=== PATIENT | female | born 1990 | race African-American/Black ===

== ENCOUNTER → 2017-05-16 | Outpatient (CLI) | payer SELFPAY ==
--- NOTE | 2017-05-16 14:43 | RADIOLOGY REPORT (SQ) ---
EXAM DESCRIPTION: U/S OB TRANSVAGINAL W/O DOP COMPLETED DATE/TIME: 05/16/2017 2:24 pm REASON FOR STUDY: ENCOUNTER FOR SUPERVISION OF OTHER NORMAL , FIRST TRIMESTER Z34.81 ENCOU NTER FOR SUPRVSN OF NORMAL , FIRST TRIM COMPARISON: No previous this TECHNIQUE: Endovaginal static and realtime grayscale images acquired of the pelvis. Additional selec ayala spectral and color Doppler images recorded. All images stored on PACs. bHCG: Not available LIMITATIONS: None. FINDINGS: An intrauterine gestational sac is present containing an embryo and yolk sac. [place]-rump length generates an estimated age of 7 weeks 3 days. No embryo cardiac activity is identified at delia l-time, with color flow, or with M-mode Doppler. This report was called to Danii Peña at the [facility] Department, 05/16/2017, 1400 hours SUBCHORIONIC BLEED: No SIZE OF BLEED: Not applicable. UTERUS: No masses. No anomalies. Uterus measures 13 x 9.5 x 7.8 cm in size CERVICAL LENGTH: 4.4 cm Closed. RIGHT ADNEXA: Normal ovary with normal vascular flow. Right ovary 2.7 x 2.7 x 1.6 cm in size. No adnexal free fluid. No adnexal masses. LEFT ADNEXA: Not well seen due to adnexal bowel gas FREE FLUID: None. OTHER: No other significant finding. IMPRESSION: 7 week 3 day intrauterine gestational sac and embryo. No embryo cardiac activity identi fied. Report called to the Health Department as above. Trimester of : First - 0 to 13 weeks. TECHNICAL DOCUMENTATION: JOB ID: [id number] [employer]- All Rights Reserved
== END ==
LOC: RAD 13:34
PROVIDERS: ATTEND Nurse Practitioner Women's Health
DX: Z34.81 Encounter for supervision of other normal pregnancy, first trimester (principal)
CPT/HCPCS: 76817

== ENCOUNTER → 2017-05-24 | Outpatient (CLI) | payer SELFPAY ==
--- NOTE | 2017-05-24 13:13 | RADIOLOGY REPORT (SQ) ---
EXAM DESCRIPTION: U/S OB TRANSVAGINAL W/O DOP COMPLETED DATE/TIME: 05/24/2017 12:46 pm REASON FOR STUDY: O02.1 MISSED O02.1 MISSED COMPARISON: 05/16/2017 TECHNIQUE: Transvaginal static and realtime grayscale images acquired of the pelvis. Additional isabella cted spectral and color Doppler images recorded. All images stored on PACs. bHCG: Not applicable. LIMITATIONS: None. FINDINGS: Sonographic imaging shows no identifiable gestational sac or pole. There is no yolk sac. There is no cardiac motion. There is a small amount of echogenic material in the endometrial canal. There is a 12 mm hypoechoic area in the vagina posteriorly. Uterus measures 10.9 x 7 x 5.3 c m. Right ovary measures 2.6 x 2.3 x 2.6 cm. The left ovary measures 1.9 x 2.3 x 1.8 cm. IMPRESSION: Cannot exclude a minimal amount of retained products of conception. There is what may b e some clot in the posterior vagina. TECHNICAL DOCUMENTATION: JOB ID: [id number]- All Rights Reserved
== END ==
LOC: RAD 12:11
PROVIDERS: ATTEND Nurse Practitioner Women's Health
DX: O02.1 Missed abortion (principal)
CPT/HCPCS: 76817

== ENCOUNTER → 2017-06-07 | Outpatient (CLI) | payer SELFPAY ==
--- NOTE | 2017-06-07 13:08 | RADIOLOGY REPORT (SQ) ---
EXAM DESCRIPTION: U/S [id number] TRNABD 1GES W/ODOP COMPLETED DATE/TIME: 06/07/2017 12:14 pm REASON FOR STUDY: ENCTR FOR SUPERVISIONS OF OTHER NORMAL , 1ST TRIMESTER (Z34.81) O03.9 CO MPLETE OR UNSP SPONTANEOUS WITHOUT COMPLICA COMPARISON: OB ultrasound 05/24/2017, 05/16/2017 TECHNIQUE: Transabdominal static and realtime grayscale images acquired of the pelvis. Additional se lected spectral and color Doppler images recorded. All images stored on PACs. BHCG: Not available LIMITATIONS: None. FINDINGS: UTERUS: No visualized intrauterine . Uterus is 10.7 x 6.3 x 4.8 cm. Endometrial stripe about 3 mm in thickness. No definite retained products of conception on this hansen sabdominal study. RIGHT ADNEXA: Normal ovary with normal vascular flow. Right ovary is 3.5 x 4.7 x 2.1 cm in size. No adnexal free fluid. No adnexal masses. LEFT ADNEXA: Not visualized due to adnexal bowel gas FREE FLUID: None. OTHER: No other significant finding. IMPRESSION: No visualized intrauterine . Endometrial stripe is about 3 mm in thickness. N o definite retained products of conception on this transabdominal study. Right ovary unremarkable. Left ovary not well seen due to pelvic bowel gas TECHNICAL DOCUMENTATION: JOB ID: [id number]- All Rights Reserved
== END ==
LOC: RAD 11:03
PROVIDERS: ATTEND Nurse Practitioner Women's Health
DX: Z34.81 Encounter for supervision of other normal pregnancy, first trimester (principal)
CPT/HCPCS: 76801

== ENCOUNTER 2017-08-19 19:26 | Emergency (ER) | payer MEDICAID ==
[2017-08-19] MEDS ORDERED: METOCLOPRAMIDE HCL INJ/PF 10 MG/2 ML SDV IV ONE (20:36)
[2017-08-19] MEDS ORDERED: NORMAL SALINE 1000 ML 1,000 ML IV ONE ×2 (20:36→23:26)
[2017-08-19] MEDS ORDERED: DIPHENHYDRAMINE HCL 50 MG/ML VIAL IV ONE (20:36)
--- NOTE | 2017-08-19 20:38 | ER Document Report ---
ED General - General Chief Complaint: Flu Symptoms Stated Complaint: VOMITIG Time Seen by Provider: 08/19/17 20:23 Mode of Arrival: Ambulatory Information source: Patient Notes: Patient presents complaining of left flank and lateral side pain for the past 2 weeks. Patient states that the pain worsened over the past few days. Patient reports nausea and vomiting 6 episodes today. Patient denies any fever or diarrhea. Patient denies any urinary symptoms. Patient is concerned that she may possibly be . Last bowel movement was today and was normal. TRAVEL OUTSIDE OF THE [place] IN LAST 30 DAYS: No - HPI Onset: Other - 2 weeks Onset/Duration: Worse Quality of pain: Sharp Pain Level: 4 Associated symptoms: Nausea, Vomiting. denies: Nonproductive cough, Productive cough, Diarrhea, Fever Exacerbated by: Movement Relieved by: Denies Similar symptoms previously: No Recently seen / treated by doctor: No - Related Data Allergies/Adverse Reactions: No Known Allergies Allergy (Verified 12/08/14 00:37) Past Medical History - General Information source: Patient Last Menstrual Period: Possibly - Social History Smoking Status: Never Smoker Frequency of alcohol use: None Drug Abuse: None Occupation: [employer] Family History: Reviewed & Not Pertinent Neurological Medical History: Reports: Hx Migraine. Denies: Hx Seizures GI Medical History: Reports: Hx Gastroesophageal Reflux Disease. Denies: Hx Hiatal Hernia, Hx Ulcer Musculoskeltal Medical History: Denies Hx Fibromyalgia Traumatic Medical History: Denies: Hx Fractures Past Surgical History: Reports: Hx Section. Denies: Hx Pacemaker - Immunizations Hx Diphtheria, Pertussis, Tetanus Vaccination: Yes Review of Systems - Review of Systems Constitutional: No symptoms reported. denies: Fever EENT: No symptoms reported Cardiovascular: No symptoms reported. denies: Chest pain Respiratory: No symptoms reported. denies: Cough, Short of breath Gastrointestinal: Nausea, Vomiting. denies: Abdominal pain, Diarrhea Genitourinary: Flank pain. denies: Dysuria Female Genitourinary: Irregular period. denies: Vaginal discharge, Vaginal bleeding Musculoskeletal: Back pain Skin: No symptoms reported Hematologic/Lymphatic: No symptoms reported Neurological/Psychological: No symptoms reported Physical Exam - Vital signs Vitals: Temp Pulse Resp BP Pulse Ox 98.9 F 92 20 132/75 H 98 08/19/17 19:33 08/19/17 19:33 08/19/17 19:33 08/19/17 19:33 08/19/17 19:33 - General General appearance: Appears well, Alert In distress: None - HEENT Head: Normocephalic Eyes: Normal Pupils: PERRL Ears: Normal External canal: Normal Tympanic membrane: Normal Mouth/Lips: Normal Mucous membranes: Dry Pharynx: Erythema. No: Peritonsillar abscess, Tonsillar hypertrophy, Potential airway comprom. Neck: Normal, Supple. No: Lymphadenopathy, Meningismus - Respiratory Respiratory status: No respiratory distress Chest status: Nontender Breath sounds: Normal. No: Rales, Rhonchi, Stridor, Wheezing Chest palpation: Normal - Cardiovascular Rhythm: Regular Heart sounds: S1 appreciated, S2 appreciated Murmur: No - Abdominal Inspection: Obese Distension: No distension Bowel sounds: Normal Tenderness: Tender - LUQ, left lateral side Organomegaly: No organomegaly - Back Back: CVA tenderness - left - Extremities General upper extremity: Normal inspection, Nontender, Normal strength General lower extremity: Normal inspection, Nontender, Normal strength - Neurological Neuro grossly intact: Yes Cognition: Normal Ray Coma Scale Eye Opening: Spontaneous Braden Coma Scale Verbal: Oriented Braden Coma Scale Motor: Obeys Commands Ray Coma Scale Total: 15 - Psychological Associated symptoms: Normal affect, Normal mood - Skin Skin Temperature: Warm Skin Moisture: Dry Skin Color: Normal Course - Re-evaluation Re-evalutation: 08/20/17 01:21 Patient returned to room from ultrasound with vomiting, additional medications ordered. 08/20/17 02:[address] Macario regarding patient presentation, recommends transferring patient to facility with urology services on given concern about possible UTI in the setting of likely renal stone in . Call placed to [facility] transfer center. Patient complains of continued left flank pain. Patient denies any vomiting at this time. RN advised of additional medication orders. 08/20/17 02:[address] Salguero, urology on-call for [facility]. States that typically LOAN COUNSELOR services will admit patients and that they are consulted as needed in cases such as this. States that patients typically get admitted for hydration, antibiotic therapy and that they try to avoid any procedures in the first trimester. 08/20/17 02:[address] Mccann who is on-call for CATH LABORATORY TECHNICIAN services at [facility] who does agree to accept patient for transfer. Discussed antibiotic treatment thus far, no additional recommendations made. 08/20/17 04:57 pt stable for transfer - Vital Signs Vital signs: Temp Pulse Resp BP Pulse Ox 99.1 F 81 20 107/62 98 08/20/17 04:50 08/20/17 04:50 08/20/17 04:50 08/20/17 04:50 08/20/17 04:50 - Laboratory Result Diagrams: 08/19/17 20:59 08/19/17 20:59 Laboratory results interpreted by me: 08/19/17 08/19/17 08/19/17 20:59 20:59 20:59 WBC 13.8 H Hgb 10.8 L Hct 32.4 L RDW 15.3 H Seg Neuts % (Manual) 92 H Lymphocytes % (Manual) 4 L Abs Neuts (Manual) 12.7 H Serum HCG, Qual POSITIVE H Beta HCG, Quant 872339.00 H Urine Protein Urine Ketones Urine Blood Ur Leukocyte Esterase 08/19/17 22:34 WBC Hgb Hct RDW Seg Neuts % (Manual) Lymphocytes % (Manual) Abs Neuts (Manual) Serum HCG, Qual Beta HCG, Quant Urine Protein 30 H Urine Ketones 80 H Urine Blood MODERATE H Ur Leukocyte Esterase LARGE H Labs- Entire Visit 08/19/17 08/19/17 08/19/17 20:59 20:59 20:59 WBC 13.8 H RBC 3.94 Hgb 10.8 L Hct 32.4 L MCV 82 MCH 27.4 MCHC 33.3 RDW 15.3 H Plt Count 305 Total Counted 100 Seg Neutrophils % Not Reportable Seg Neuts % (Manual) 92 H Lymphocytes % Not Reportable Lymphocytes % (Manual) 4 L Monocytes % Not Reportable Monocytes % (Manual) 4 Eosinophils % Not Reportable Eosinophils % (Manual) 0 Basophils % Not Reportable Basophils % (Manual) 0 Absolute Neutrophils Not Reportable Abs Neuts (Manual) 12.7 H Absolute Lymphocytes Not Reportable Abs Lymphs (Manual) 0.6 Absolute Monocytes Not Reportable Abs Monocytes (Manual) 0.6 Absolute Eosinophils Not Reportable Absolute Eos (Manual) 0.0 Absolute Basophils Not Reportable Abs Basophils (Manual) 0.0 Platelet Comment ADEQUATE Poikilocytosis SLIGHT Anisocytosis SLIGHT Tear Drop Cells SLIGHT Ovalocytes SLIGHT Sodium 137.6 Potassium 4.3 Chloride 104 Carbon Dioxide 22 Anion Gap 12 BUN 10 Creatinine 0.69 Est GFR ( Amer) > 60 Est GFR (Non-Af Amer) > 60 Glucose 92 Calcium 9.3 Total Bilirubin 0.4 Direct Bilirubin 0.1 Neonat Total Bilirubin Not Reportable Neonat Direct Bilirubin Not Reportable Neonat Indirect Bili Not Reportable AST 23 ALT 31 Alkaline Phosphatase 56 Total Protein 7.1 Albumin 4.0 Lipase 91.7 Serum HCG, Qual POSITIVE H Beta HCG, Quant Total Beta HCG Urine Color Urine Appearance Urine pH Ur Specific [place] Urine Protein Urine Glucose (UA) Urine Ketones Urine Blood Urine Nitrite Urine Bilirubin Urine Urobilinogen Ur Leukocyte Esterase Urine WBC (Auto) Urine RBC (Auto) Urine Bacteria (Auto) Squamous Epi Cells Auto Urine Mucus (Auto) Urine Ascorbic Acid Group A Strep Rapid 08/19/17 08/19/17 08/19/17 20:59 20:59 22:34 WBC RBC Hgb Hct MCV MCH MCHC RDW Plt Count Total Counted Seg Neutrophils % Seg Neuts % (Manual) Lymphocytes % Lymphocytes % (Manual) Monocytes % Monocytes % (Manual) Eosinophils % Eosinophils % (Manual) Basophils % Basophils % (Manual) Absolute Neutrophils Abs Neuts (Manual) Absolute Lymphocytes Abs Lymphs (Manual) Absolute Monocytes Abs Monocytes (Manual) Absolute Eosinophils Absolute Eos (Manual) Absolute Basophils Abs Basophils (Manual) Platelet Comment Poikilocytosis Anisocytosis Tear Drop Cells Ovalocytes Sodium Potassium Chloride Carbon Dioxide Anion Gap BUN Creatinine Est GFR ( Amer) Est GFR (Non-Af Amer) Glucose Calcium Total Bilirubin Direct Bilirubin Neonat Total Bilirubin Neonat Direct Bilirubin Neonat Indirect Bili AST ALT Alkaline Phosphatase Total Protein Albumin Lipase Serum HCG, Qual Beta HCG, Quant 705050.00 H Total Beta HCG POSITIVE Urine Color YELLOW Urine Appearance CLOUDY Urine pH 8.0 Ur Specific [place] 1.025 Urine Protein 30 H Urine Glucose (UA) NEGATIVE Urine Ketones 80 H Urine Blood MODERATE H Urine Nitrite NEGATIVE Urine Bilirubin NEGATIVE Urine Urobilinogen NEGATIVE Ur Leukocyte Esterase LARGE H Urine WBC (Auto) 11 Urine RBC (Auto) >182 Urine Bacteria (Auto) 1+ Squamous Epi Cells Auto 17 Urine Mucus (Auto) OCC Urine Ascorbic Acid NEGATIVE Group A Strep Rapid NEGATIVE - Diagnostic Test Radiology reviewed: Reports reviewed Discharge - Discharge Clinical Impression: Flank pain Nausea and vomiting Qualifiers: Vomiting type: unspecified Vomiting Intractability: non-intractable Qualified Code(s): R11.2 - Nausea with vomiting, unspecified Hydronephrosis Qualifiers: Hydronephrosis type: unspecified Qualified Code(s): N13.30 - Unspecified hydronephrosis UTI (urinary tract infection) Qualifiers: Urinary tract infection type: site unspecified Hematuria presence: with hematuria Qualified Code(s): N39.0 - Urinary tract infection, site not specified Qualifiers: Weeks of gestation: 8 weeks Qualified Code(s): Z3A.08 - 8 weeks gestation of Condition: Stable Disposition: [facility]
[2017-08-19 21:13] LABS: HEMATOCRIT 32.4 % (36.0-47.0); HEMOGLOBIN 10.8 g/dL (12.0-15.5); MEAN CORPUSCULAR HEMOGLOBIN 27.4 pg (27.0-33.4); MEAN CORPUSCULAR HGB CONC 33.3 g/dL (32.0-36.0); MEAN CORPUSCULAR VOLUME 82 fl (80-97); PLATELET COUNT 305 10^3/uL (150-450); RED BLOOD COUNT 3.94 10^6/uL (3.72-5.28); RED CELL DISTRIBUTION WIDTH 15.3 % (11.5-14.0); WHITE BLOOD COUNT 13.8 10^3/uL (4.0-10.5)
[2017-08-19 21:22] LABS: ALANINE AMINOTRANSFERASE 31 U/L (9-52); ALKALINE PHOSPHATASE 56 U/L (38-126); ANION GAP 12 (5-19); ASPARTATE AMINO TRANSFERASE 23 U/L (14-36); BILIRUBIN,DIRECT 0.1 mg/dL (0.0-0.4); BILIRUBIN,TOTAL 0.4 mg/dL (0.2-1.3); BLOOD UREA NITROGEN 10 mg/dL (7-20); CALCIUM 9.3 mg/dL (8.4-10.2); CARBON DIOXIDE 22 mmol/L (22-30); CHLORIDE 104 mmol/L (98-107); GLUCOSE 92 mg/dL (75-110); LIPASE 91.7 U/L (23-300); POTASSIUM 4.3 mmol/L (3.6-5.0); SODIUM 137.6 mmol/L (137-145); TOTAL PROTEIN 7.1 g/dL (6.3-8.2)
[2017-08-19 21:28] LABS: ABSOLUTE LYMPHOCYTES# (MANUAL) 0.6 10^3/uL (0.5-4.7); ABSOLUTE MONOCYTES # (MANUAL) 0.6 10^3/uL (0.1-1.4); ABSOLUTE NEUTROPHILS# (MANUAL) 12.7 10^3/uL (1.7-8.2); BASOPHILS % (MANUAL) 0 % (0-2); EOSINOPHILS % (MANUAL) 0 % (0-6); LYMPHOCYTES % (MANUAL) 4 % (13-45); MONOCYTES % (MANUAL) 4 % (3-13); SEGMENTED NEUTROPHILS % (MAN) 92 % (42-78); TOTAL CELLS COUNTED 100
[2017-08-19 21:29] LABS: ANISOCYTOSIS SLIGHT; OVALOCYTES SLIGHT; PLATELET COMMENT ADEQUATE; POIKILOCYTOSIS SLIGHT; TEAR DROP CELLS SLIGHT
[2017-08-19 23:12] LABS: APPEARANCE,URINE CLOUDY; BILIRUBIN,URINE NEGATIVE (NEGATIVE); COLOR,URINE YELLOW; GLUCOSE, URINE NEGATIVE (NEGATIVE); KETONES,URINE 80 mg/dL (NEGATIVE); LEUKOCYTE ESTERASE,URINE LARGE (NEGATIVE); NITRITE,URINE NEGATIVE (NEGATIVE); PROTEIN,URINE 30 mg/dL (NEGATIVE); URINE SPECIFIC GRAVITY 1.025; UROBILINOGEN,URINE NEGATIVE mg/dL (<2.0)
[2017-08-19] MEDS ORDERED: CEFTRIAXONE INJ 1000 MG VIAL IV ONE (23:26)
--- NOTE | 2017-08-19 23:44 | RADIOLOGY REPORT (SQ) ---
EXAM DESCRIPTION: U/S OB TRANSVAGINAL W/O DOP CLINICAL HISTORY: 27 years, Female, left side, left flank pain COMPARISON: 06/07/2017 TECHNIQUE: Transvaginal LIMITATIONS: As below. FINDINGS: Living intrauterine fetus measures 8w6d with SHAREE of 03/25/18 based on CRL of 2.2-cm. Cardiac activity is 187 bpm. 4.1 cm right ovary contains a likely 2.4 cm right corpus luteum. Left ovarian fossa is partially obscured due to bowel gas artifact. Left ovary is not directly visualized. No significant free fluid. Cervical length is 3.4 cm. IMPRESSION: Living intrauterine fetus measures 8w6d with SHAREE of 03/25/18. No evidence of complication. Left ovary not visualized.
[2017-08-20] MEDS ORDERED: ACETAMINOPHEN 325 MG TABLET PO ONE (00:55)
[2017-08-20] MEDS ORDERED: METOCLOPRAMIDE HCL INJ/PF 10 MG/2 ML SDV IV ONE (01:20)
[2017-08-20] MEDS ORDERED: DIPHENHYDRAMINE HCL 50 MG/ML VIAL IV ONE (01:20)
--- NOTE | 2017-08-20 01:49 | RADIOLOGY REPORT (SQ) ---
EXAM DESCRIPTION: U/S RETROPERITON (RENAL/AORTA) CLINICAL HISTORY: 27 years, Female, left flank/side pain, hematuria COMPARISON: CT, 12/08/2014, report only. LIMITATIONS: None. FINDINGS: Multiple moderate dilated left proximal renal collecting system includes a 2.1 cm diameter renal pelvis. 11 cm right kidney, 14 cm left kidney, and urinary bladder appear otherwise unremarkable. Nonspecific nonvisualization of bilateral ureteral jets flow at the urinary bladder. IMPRESSION: Mild-moderate left hydronephrosis/dilation.
[2017-08-20 04:51] VITALS: BP 107/62
== END 2017-08-20 04:45 | disposition short-term general hospital (02) ==
LOC: ER 19:26
DX: O23.41 Unspecified infection of urinary tract in pregnancy, first trimester (principal); N13.30 Unspecified hydronephrosis; R10.9 Unspecified abdominal pain; K21.9 Gastro-esophageal reflux disease without esophagitis; O21.9 Vomiting of pregnancy, unspecified; Z3A.08 8 weeks gestation of pregnancy
CPT/HCPCS: 96376; 99285; 96361; 96375; 96365; 36415; 87070; 87086; 87880; 84702; 83690; 84703; 85025; 80053; 81001; 76817; 76770; J1200 ×2; J2765 ×2; J0696; J7030

== ENCOUNTER 2018-01-12 21:21 | Outpatient (CLI) | payer MEDICAID ==
[2018-01-12 22:05] LABS: APPEARANCE,URINE CLOUDY; BILIRUBIN,URINE NEGATIVE (NEGATIVE); CALCIUM OXALATE CRYSTALS,URINE FEW /HPF; COLOR,URINE YELLOW; GLUCOSE, URINE NEGATIVE (NEGATIVE); KETONES,URINE TRACE mg/dL (NEGATIVE); LEUKOCYTE ESTERASE,URINE LARGE (NEGATIVE); NITRITE,URINE NEGATIVE (NEGATIVE); PROTEIN,URINE NEGATIVE (NEGATIVE); URINE SPECIFIC GRAVITY 1.015
[2018-01-12 22:27] LABS: URINE AMPHETAMINES SCREEN NEGATIVE; URINE BARBITURATES SCREEN NEGATIVE; URINE BENZODIAZEPINES SCREEN NEGATIVE; URINE COCAINE SCREEN NEGATIVE; URINE MARIJUANA (THC) SCREEN NEGATIVE; URINE METHADONE SCREEN NEGATIVE; URINE PHENCYCLIDINE SCREEN NEGATIVE
[2018-01-12] MEDS ORDERED: PROMETHAZINE HCL 25 MG TABLET ONE (22:39)
[2018-01-12] MEDS ORDERED: PROMETHAZINE HCL 25 MG TABLET PO ONE (22:42)
== END 2018-01-12 22:47 | disposition home or self-care (01) ==
LOC: LC 21:21
PROVIDERS: ATTEND Obstetrics & Gynecology Gynecology
PROC: 4A1HXCZ Monitoring of Products of Conception, Cardiac Rate, External Approach (ICD-10-PCS; principal; 2018-01-12)
DX: O47.03 False labor before 37 completed weeks of gestation, third trimester (principal); Z3A.29 29 weeks gestation of pregnancy
CPT/HCPCS: 59899; 87086; 81001; 80307; J3490

== ENCOUNTER 2018-03-28 12:45 | Outpatient (CLI) | payer MEDICAID ==
[2018-03-28 13:25] LABS: APPEARANCE,URINE SLIGHTLY-CLOUDY; BILIRUBIN,URINE NEGATIVE (NEGATIVE); COLOR,URINE YELLOW; GLUCOSE, URINE NEGATIVE (NEGATIVE); KETONES,URINE NEGATIVE (NEGATIVE); LEUKOCYTE ESTERASE,URINE LARGE (NEGATIVE); NITRITE,URINE NEGATIVE (NEGATIVE); PROTEIN,URINE NEGATIVE (NEGATIVE); URINE SPECIFIC GRAVITY 1.004; UROBILINOGEN,URINE NEGATIVE mg/dL (<2.0)
[2018-03-28 13:54] LABS: URINE AMPHETAMINES SCREEN NEGATIVE; URINE BARBITURATES SCREEN NEGATIVE; URINE BENZODIAZEPINES SCREEN NEGATIVE; URINE COCAINE SCREEN NEGATIVE; URINE MARIJUANA (THC) SCREEN NEGATIVE; URINE METHADONE SCREEN NEGATIVE; URINE PHENCYCLIDINE SCREEN NEGATIVE
--- NOTE | 2018-03-28 14:35 | Non Stress Test Report ---
Non Stress Test Datetime Report Generated by CPN: 03/28/2018 14:35 DEMOGRAPHIC EGA NST: 40.3 INDICATION Indication for Study: Other Indication for Study (NST) Other: lc for pressure MONITORING Monitor Explained: Monitor Explained; Test Explained; Patient Verbalized Understanding Time on Monitor: 03/28/2018 13:00 Time off Monitor: 03/28/2018 14:27 NST Duration: 87 NST INTERVENTIONS NST Interventions: PO Hydration; Reposition Patient Physician Notified NST: K De Paz CNM BABY A: [id number] Movement : Present Contraction Frequency : occassional FHR Baseline : 135 Accelerations : 15X15 Decelerations : None Variability : Moderate 6-25bpm NST Review: Meets Criteria for Reactive NST NST Review and Verified By : Flory Santana RNC NST Results: Reactive NST REPORT Report Trigger: Send Report
== END 2018-03-28 14:40 | disposition home or self-care (01) ==
LOC: LC 12:45
PROVIDERS: ATTEND Student in an Organized Health Care Education/Training Program
PROC: 4A1HXCZ Monitoring of Products of Conception, Cardiac Rate, External Approach (ICD-10-PCS; principal; 2018-03-28)
DX: O47.1 False labor at or after 37 completed weeks of gestation (principal); Z3A.40 40 weeks gestation of pregnancy
CPT/HCPCS: 59025; 80307; 81001

== ENCOUNTER 2018-03-29 18:30 | Inpatient (IN) | payer MEDICAID ==
[2018-03-29 19:00] LABS: APPEARANCE,URINE CLOUDY; BILIRUBIN,URINE NEGATIVE (NEGATIVE); COLOR,URINE YELLOW; GLUCOSE, URINE NEGATIVE (NEGATIVE); KETONES,URINE NEGATIVE (NEGATIVE); LEUKOCYTE ESTERASE,URINE LARGE (NEGATIVE); NITRITE,URINE NEGATIVE (NEGATIVE); PROTEIN,URINE NEGATIVE (NEGATIVE); URINE SPECIFIC GRAVITY 1.006; UROBILINOGEN,URINE NEGATIVE mg/dL (<2.0)
[2018-03-29 19:21] LABS: ABSOLUTE EOSINOPHILS # (AUTO) 0.1 10^3/uL (0.0-0.6); ABSOLUTE LYMPHOCYTES (AUTO) 1.1 10^3/uL (0.5-4.7); ABSOLUTE MONOCYTES (AUTO) 0.8 10^3/uL (0.1-1.4); ABSOLUTE NEUT (AUTO) 6.3 10^3/uL (1.7-8.2); BASOPHILS % (AUTO) 0.3 % (0-2); HEMOGLOBIN 9.6 g/dL (12.0-15.5); LYMPHOCYTES % (AUTO) 13.6 % (13-45); MEAN CORPUSCULAR HEMOGLOBIN 26.8 pg (27.0-33.4); MEAN CORPUSCULAR HGB CONC 33.3 g/dL (32.0-36.0); MEAN CORPUSCULAR VOLUME 81 fl (80-97); MONOCYTES % (AUTO) 9.1 % (3-13); PLATELET COUNT 342 10^3/uL (150-450); TOTAL CELLS COUNTED % (AUTO) 100 %; WHITE BLOOD COUNT 8.3 10^3/uL (4.0-10.5)
[2018-03-29 19:22] LABS: URINE AMPHETAMINES SCREEN NEGATIVE; URINE BARBITURATES SCREEN NEGATIVE; URINE BENZODIAZEPINES SCREEN NEGATIVE; URINE COCAINE SCREEN NEGATIVE; URINE MARIJUANA (THC) SCREEN NEGATIVE; URINE METHADONE SCREEN NEGATIVE; URINE PHENCYCLIDINE SCREEN NEGATIVE
[2018-03-29] MEDS ORDERED: OXYTOCIN 10 UNIT/ML VIAL ONE (19:22)
[2018-03-29] MEDS ORDERED: MISOPROSTOL 0.2 MG TABLET ONE (19:22)
[2018-03-29] MEDS ORDERED: LIDOCAINE 1% INJ-PF (10 MG/ML) 30 ML SDV ONE (19:23)
[2018-03-29] MEDS ORDERED: OXYTOCIN/NORMAL SALINE 20 UNIT/1,000 ML RTUINJ ONE (19:23)
--- NOTE | 2018-03-29 19:36 | Admission Physical ---
Datetime Report Generated by CPN: 03/29/2018 19:36 CURRENT ADMISSION Chief Complaint: Uterine Contractions Indication for Induction: Post Dates Admit Impression : Term, Intrauterine ; Active Labor Admit Plan: Admit to Unit; Initiate Labor Induction Protocol ALLERGIES Medication Allergies: No Medication Allergies: No Known Allergies (03/29/2018) Latex: No Latex Allergies Food Allergies: denies Environmental Allergies: denies OBSTETRICAL HISTORY EDC: 03/25/2018 00:00 : 6 Para: 3 Term: 3 SAB: 1 Ectopic: 0 Livin Cesareans: 1 VBACs: 1 Multiple Births: 1 Gestational Diabetes: Unknown Rh Sensitization: No Incompetent Cervix: No ELIZA: No Infertility: No ART Treatment: No Uterine Anomaly: No IUGR: No Hx Previous C/S: Yes Macrosomia: Yes Hx Loss/Stillborn: No PIH: No Hx : No Placenta Previa/Abruption: No Depression/PP Depression: No PTL/PROM: No Post Hemorrhage: No Current Procedures: Ultrasound; NST Obstetrical History Comments: G1: 2008, female, 40 weeks, , 9#11 oz G2: 2011, males, 38 weeks, primary c/s, twins, both were 6#9 oz G3: 2012, male, 39 weeks, 2012 G4: SAB, 05/21 G5: current limited pnc (failed 1 hour, 3 hour gtt to still result) SEE RECORDS Alcohol: No Marijuana : No Cocaine: No Other Illicit Drugs: No Cigarettes: Never Smoker. 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, kidney stones (hospitalized for 3 days at [facility]), uti, chronic anemia, obesity INFECTIOUS HISTORY Gonorrhea: No Genital Herpes: No Chlamydia: Yes Tuberculosis: No Syphilis: No Hepatitis: No HIV/AIDS Exposure: No Rash or Viral Illness: No HPV: No Infectious History Comments: chlamydia in 2008 PHYSICAL EXAM General: Normal HEENT: Normal Neurologic: Normal Thyroid: Normal Heart: Normal Lungs: Normal Breast: Normal Back: Normal Abdomen: Normal Genitourinary Exam: Normal Extremities: Normal DTRs: Normal Pelvic Type: Adequate Vital Signs: Reviewed; Within Normal Limits VAGINAL EXAM Dilatation: 5 MEMBRANES Membranes: Intact FETUS A EGA: 40.4 Monitoring: External US FHR- Baseline: 130s Variability: Moderate 6-25bpm Accelerations: 15X15 Decelerations: None FHR Category: Category I Admit Comment: Pt scheduled for induction tomorrow PLANS FOR LABOR AND DELIVERY Labor and Delivery: None Pain Management: Natural Feeding Preference: Formula Benefit of Breast Feed Discussed: Yes Circumcision: N/A INFORMED CONSENT Signature: with User ID: [email or web address]
[2018-03-29] MEDS ORDERED: OXYTOCIN/NORMAL SALINE 20 UNIT/1,000 ML RTUINJ IV PRN (21:10)
[2018-03-29] MEDS ORDERED: EPHEDRINE SULFATE INJ 50 MG/1 ML AMPULE ONE (23:07)
[2018-03-29] MEDS ORDERED: FENTANYL/BUPIVACAINE/NS/PF 300 MCG/150 ML RTUINJ EPI ONE (23:07)
[2018-03-29] MEDS ORDERED: BUPIVACAINE HCL 0.5 % INJ/PF 30 ML SDV ONE (23:07)
[2018-03-30] MEDS ORDERED: MAG HYDROX/AL HYDROX/SIMETH SUSP 30 ML UDCUP PO ONE (03:31)
[2018-03-30] MEDS ORDERED: MAG HYDROX/AL HYDROX/SIMETH SUSP 30 ML UDCUP ONE (03:33)
--- NOTE | 2018-03-30 06:22 | L&D Progress Notes ---
PROGRESS NOTES Datetime Report Generated by CPN: 03/30/2018 06:22 PROGRESS NOTE Impression: Normal Progression of Labor Plan: Continue Present Management Informed Consent Obtained: Vaginal Delivery; Risks, Benefits and Alternatives Discussed Vital Signs : Reviewed; Within Normal Limits Comment: Pt resting at 0540; s/p epidural; still ballotable; pitocin @ 20 mU VAGINAL EXAM Dilatation: 7 Dilatation: 5 Effacement: 50% Station: -3 Contractions: q 2-3 MEMBRANES Membranes: Intact FETUS A FHR - Baseline: 140s Monitoring: External US Variability: Moderate 6-25bpm Decelerations: None FHR Category: Category I : 40.5 : 40.4 SIGNATURE SIGNATURE: ,[id number] SIGNATURE: ,[id number] SIGNATURE: ,[id number] Signature: with User ID: Martin
[2018-03-30] MEDS ORDERED: RINGERS SOLUTION,LACTATED 1,000 ML IV PRN (07:44)
[2018-03-30] MEDS ORDERED: ONDANSETRON HCL INJ/PF 4 MG/2 ML SDV IV ONE (08:23)
[2018-03-30] MEDS ORDERED: ONDANSETRON HCL INJ/PF 4 MG/2 ML SDV ONE (08:23)
--- NOTE | 2018-03-30 08:27 | L&D Progress Notes ---
PROGRESS NOTES Datetime Report Generated by CPN: 03/30/2018 08:27 PROGRESS NOTE Impression: Reassuring Heart Rate Informed Consent Obtained: Vaginal Delivery Comment: Cat 2 strip, early and variable decelerations, uc's q 2-3, nausea, will give Zofran 8 mg IVSP, mod variability, POC discussed FETUS C SIGNATURE: [id number];[id number];[id number] Assignment: Omid Bills MD Signature: with User ID: [email or web address] : with User ID: [email or web address]
[2018-03-30] MEDS ORDERED: OXYTOCIN/NORMAL SALINE 20 UNIT/1,000 ML RTUINJ ONE (09:24)
[2018-03-30] MEDS ORDERED: DIBUCAINE 1% OINTMENT 28 GM TP PRN (09:39)
[2018-03-30] MEDS ORDERED: PROMETHAZINE HCL 25 MG SUPP.RECT PR PRN (09:39)
[2018-03-30] MEDS ORDERED: PROMETHAZINE HCL INJ 25 MG/1 ML VIAL IV PRN (09:39)
[2018-03-30] MEDS ORDERED: DIPHENHYDRAMINE HCL 25 MG CAPSULE PO PRN (09:39)
[2018-03-30] MEDS ORDERED: MEASLES,MUMPS&RUBELLA VACC/PF 0.5 ML VIAL SUBCUT PRN (09:39)
[2018-03-30] MEDS ORDERED: MAGNESIUM HYDROXIDE SUSP 30 ML UDCUP PO PRN (09:39)
[2018-03-30] MEDS ORDERED: MISOPROSTOL 0.2 MG TABLET PR PRN (09:39)
[2018-03-30] MEDS ORDERED: NA PHOS,M-B/NA PHOS,DI-BA (ADULT) 133 ML ENEMA PR PRN (09:39)
[2018-03-30] MEDS ORDERED: PROMETHAZINE HCL 25 MG TABLET PO PRN (09:39)
[2018-03-30] MEDS ORDERED: ACETAMINOPHEN 650 MG SUPP.RECT PR PRN (09:39)
[2018-03-30] MEDS ORDERED: ACETAMINOPHEN WITH CODEINE #3 TABLET PO PRN ×2 (09:39)
[2018-03-30] MEDS ORDERED: BENZOCAINE/MENTHOL AEROSOL SPRAY 56 ML TOP PRN (09:39)
[2018-03-30] MEDS ORDERED: GLYCERIN/WITCH HAZEL LEAF 1 EACH MED..PAD TP PRN (09:39)
[2018-03-30] MEDS ORDERED: DIPH/PERTUSS(ACELL)/TETANUS VAC/PF 0.5 ML SYR (>=10YO) IM PRN (09:39)
[2018-03-30] MEDS ORDERED: PSEUDOEPHEDRINE HCL 30 MG TABLET PO PRN (09:39)
[2018-03-30] MEDS ORDERED: OXYTOCIN/NORMAL SALINE 20 UNIT/1,000 ML RTUINJ IV PRN (09:39)
[2018-03-30] MEDS ORDERED: TERBUTALINE SULFATE INJ/PF 1 MG/1 ML SDV ONE (09:58)
[2018-03-30] MEDS ORDERED: FAMOTIDINE 20 MG TABLET PO SCH (10:00)
[2018-03-30] MEDS ORDERED: IBUPROFEN 800 MG TABLET ONE (11:05)
[2018-03-30] MEDS: DOCUSATE SODIUM 100 MG CAPSULE PO SCH ×2 (11:31→19:44)
[2018-03-30] MEDS: PRENATAL VITAMIN W DHA CAPSULE PO SCH (11:32)
[2018-03-30] MEDS: FERROUS SULFATE 325 MG TABLET PO SCH ×2 (11:32→19:44)
[2018-03-30] MEDS: SENNOSIDES/DOCUSATE 8.6-50 MG 1 EACH TABLET PO SCH (11:33)
[2018-03-30] MEDS ORDERED: CEFAZOLIN 2 GM/D5W RTU 2 GM/50 ML RTUPB IV ONE ×2 (11:48)
--- NOTE | 2018-03-30 11:59 | L&D Progress Notes ---
PROGRESS NOTES Datetime Report Generated by CPN: 03/30/2018 11:59 PROGRESS NOTE Comment: fever, Ancef 2 Gms IV now, CBC at 6 pm FETUS C SIGNATURE: [id number];[id number];[id number] Assignment: Omid Bills MD Signature: with User ID: [email or web address] : with User ID: [email or web address]
[2018-03-30] MEDS ORDERED: CEFAZOLIN 2 GM/D5W RTU 2 GM/50 ML RTUPB IV SCH (12:00)
[2018-03-30] MEDS ORDERED: CEPHALEXIN 500 MG CAPSULE PO SCH (12:00)
[2018-03-30] MEDS: IBUPROFEN 800 MG TABLET PO SCH ×2 (17:18→22:52)
[2018-03-30] MEDS: CEPHALEXIN 500 MG CAPSULE PO SCH (19:44)
[2018-03-31] MEDS: CEPHALEXIN 500 MG CAPSULE PO SCH ×4 (00:02→17:49)
[2018-03-31] MEDS: IBUPROFEN 800 MG TABLET PO SCH ×3 (05:40→21:27)
[2018-03-31 08:03] LABS: HEMATOCRIT 27.9 % (36.0-47.0); HEMOGLOBIN 9.5 g/dL (12.0-15.5); MEAN CORPUSCULAR HEMOGLOBIN 27.1 pg (27.0-33.4); MEAN CORPUSCULAR HGB CONC 34.1 g/dL (32.0-36.0); MEAN CORPUSCULAR VOLUME 80 fl (80-97); PLATELET COUNT 317 10^3/uL (150-450); RED BLOOD COUNT 3.51 10^6/uL (3.72-5.28); RED CELL DISTRIBUTION WIDTH 16.1 % (11.5-14.0); WHITE BLOOD COUNT 10.9 10^3/uL (4.0-10.5)
[2018-03-31] MEDS: FERROUS SULFATE 325 MG TABLET PO SCH ×2 (09:31→17:49)
[2018-03-31] MEDS: PRENATAL VITAMIN W DHA CAPSULE PO SCH (09:31)
[2018-03-31] MEDS: DOCUSATE SODIUM 100 MG CAPSULE PO SCH ×2 (09:31→17:48)
[2018-03-31] MEDS: SENNOSIDES/DOCUSATE 8.6-50 MG 1 EACH TABLET PO SCH (09:31)
--- NOTE | 2018-03-31 09:46 | PDOC PROGRESS REPORT ---
Subjective-OB Progress Note for:: 03/31/18 Subjective: Doing well, holding baby, Physical Exam (OB) Vital Signs: Temp Pulse Resp BP Pulse Ox 98.2 F 75 18 127/86 H 99 03/31/18 04:00 03/31/18 04:00 03/31/18 04:00 03/31/18 04:00 03/31/18 04:00 Intake & Output 03/30/18 03/31/18 04/01/18 06:59 06:59 06:59 Intake Total 1450 Balance 1450 Weight 105.5 kg - PIH/Pre-Eclampsia Headache: Absent Epigastric Pain: No Visual Changes: No - Lochia Lochia Amount: Scant < 10 ml Lochia Color: Rubra/Red - Abdomen Description: Tender, Soft, Round Hernia Present: No Fundal Description: Firm, Midline Fundal Height: u/u - u/2 Objective-Diagnostic Laboratory: 03/31/18 07:38 03/31/18 07:38 WBC 10.9 H RBC 3.51 L Hgb 9.5 L Hct 27.9 L MCV 80 MCH 27.1 MCHC 34.1 RDW 16.1 H Plt Count 317 Assessment and Plan(PN) - Assessment and Plan (1) Previous delivery, delivered Is this a current diagnosis for this admission?: Yes (2) Delivery normal Is this a current diagnosis for this admission?: Yes - Time Spent with Patient Time with patient: Less than 15 minutes Medications reviewed and adjusted accordingly: Yes - Disposition Anticipated Discharge: Home Within: within 24 hours
[2018-04-01] MEDS: CEPHALEXIN 500 MG CAPSULE PO SCH ×3 (00:29→11:07)
[2018-04-01] MEDS: IBUPROFEN 800 MG TABLET PO SCH (05:58)
--- NOTE | 2018-04-01 10:13 | PDOC PROGRESS REPORT ---
Subjective-OB Progress Note for:: 04/01/18 Subjective: doing well, no c/o, ready to go home, support at home, breast feeding Physical Exam (OB) Vital Signs: Temp Pulse Resp BP Pulse Ox 98.1 F 77 16 127/87 H 99 04/01/18 08:08 04/01/18 08:08 04/01/18 08:08 04/01/18 08:08 04/01/18 08:08 Intake & Output 03/31/18 04/01/18 04/02/18 06:59 06:59 06:59 Intake Total 1450 350 Balance 1450 350 - PIH/Pre-Eclampsia Headache: Absent Epigastric Pain: No Visual Changes: No - Lochia Lochia Amount: Scant < 10 ml Lochia Color: Rubra/Red - Abdomen Description: Tender, Soft, Round Hernia Present: No Fundal Description: Firm, Midline Fundal Height: u/u - u/2 Objective-Diagnostic Laboratory: 03/31/18 07:38 Assessment and Plan(PN) - Assessment and Plan (1) Previous delivery, delivered Is this a current diagnosis for this admission?: Yes (2) Delivery normal Is this a current diagnosis for this admission?: Yes - Time Spent with Patient Time with patient: Less than 15 minutes Medications reviewed and adjusted accordingly: Yes - Disposition Anticipated Discharge: Home Within: within 24 hours
--- NOTE | 2018-04-01 10:16 | PDOC DISCHARGE SUMMARY ---
Final Diagnosis Discharge Date: 04/01/18 - Final Diagnosis (1) Previous delivery, delivered Is this a current diagnosis for this admission?: Yes (2) Delivery normal Is this a current diagnosis for this admission?: Yes Discharge Data - Discharge Medication Home Medications: Ferrous Sulfate [Iron] 325 mg PO BID 03/28/18 Vits96/Iron Fum/Folic [ Tablet] 1 tab PO DAILY 03/29/18 Gestational Age: 40.5 Reason(s) for Admission: Onset of Labor Procedures: NST, Ultrasound - Diagnosis Test Laboratory: Temp Pulse Resp BP Pulse Ox 98.1 F 77 16 127/87 H 99 04/01/18 08:08 04/01/18 08:08 04/01/18 08:08 04/01/18 08:08 04/01/18 08:08 03/29/18 03/29/18 03/31/18 18:30 19:08 07:38 RBC 3.60 L 3.51 L Hgb 9.6 L 9.5 L Hct 29.0 L 27.9 L Urine Opiates Screen NEGATIVE - Discharge information/Instructions Discharge Activity: No Lifting Over 10 Pounds, No Lifting/Push/Pulling, Pelvic Rest Discharge Diet: As Tolerated, Regular Disposition: HOME, SELF-CARE Follow up with: [facility] in: 2, Weeks
[2018-04-01] MEDS: SENNOSIDES/DOCUSATE 8.6-50 MG 1 EACH TABLET PO SCH (10:58)
[2018-04-01] MEDS: FERROUS SULFATE 325 MG TABLET PO SCH (10:58)
[2018-04-01] MEDS: PRENATAL VITAMIN W DHA CAPSULE PO SCH (10:58)
[2018-04-01] MEDS: DOCUSATE SODIUM 100 MG CAPSULE PO SCH (10:58)
[2018-04-01 12:14] VITALS: BP 127/86
--- NOTE | 2018-04-05 10:44 | Delivery Summary ---
Del Sum A-C Datetime Report Generated by CPN: 04/05/2018 10:44 DELIVERY PERSONNEL DELIVERY PERSONNEL: [id number] Delivery Doctor:: Amisha Mcdonough CNM Labor and Delivery Nurse:: kaila macias Labor and Delivery Nurse:: Oly Luna RN Nursery Nurse:: Pratima Modi RN Director Of Gift Planning/MACHINE BENDER: Verenice Rutledge, INTERFACE DESIGNER Additional Personnel: : Vane Clemons RN MATERNAL INFORMATION Delivery Anesthesia: Epidural Medications After Delivery: Pitocin Drip 20 Units/1000ml NSS; Cytotec 600mcg Per Rectum/Vagina Maternal Complications: None Provider Comments: viable female from oa to luis over intact perineum, placed on mothers abd, cord clamped and cut after 2 minutes. spont del of grossly nl intact placenta, 3 VC, no lacerations, FFFM. uterine massage, Pitocin and cytotec 600 mcg via rectum Baby and mom in recovery in stable condition, bonding well with baby (Annotations: Data stored by N on behalf of user) LABOR SUMMARY EDC: 03/25/2018 00:00 No. Babies in Womb: 1 Attempted: Yes Labor Anesthesia: Epidural LABOR INFORMATION Onset of Labor: 03/29/2018 15:00 Complete Dilatation: 03/30/2018 09:02 Group B Beta Strep: negative Steroids Given: None MEMBRANES Membranes Rupture Method: Artificial Rupture of Membranes: 03/30/2018 07:37 Length of Rupture (hr): 1.63 Amniotic Fluid Color: Clear Amniotic Fluid Amount: Small Amniotic Fluid Odor: Normal STAGES OF LABOR Stage 1 hr: 18 Stage 1 min: 2 Stage 2 hr: 0 Stage 2 min: 13 Stage 3 hr: 0 Stage 3 min: 5 Total Time in Labor hr: 18 Total Time in Labor min: 20 VAGINAL DELIVERY Episiotomy: None Laceration #1: None Laceration Extension #1: N/A Laceration Repair: Not Applicable BABY A INFORMATION Delivery Date/Time: 03/30/2018 09:15 Method of Delivery: Vaginal : Successful Forceps: N/A Vacuum Extraction: N/A Shoulder Dystocia : No PRESENTATION/POSITION BABY A Presentation: Cephalic Cephalic Presentation: Vertex Vertex Position: Left Occipital Anterior Breech Presentation: N/A PLACENTA INFORMATION BABY A Placenta Delivery Time : 03/30/2018 09:20 Placenta Method of Delivery: Spontaneous Placenta Status: Delivered SCORES BABY A Heart Rate 1 min: >100 bpm Resp Effort 1 min: Good Cry Reflex Irritability 1 min: Cough or Sneeze or Pulls Away Muscle Tone 1 min: Active Motion Color 1 min: Blue/Pale SCORE 1 MIN: 8 Heart Rate 5 min: >100 bpm Resp Effort 5 min: Good Cry Reflex Irritability 5 min: Cough or Sneeze or Pulls Away Muscle Tone 5 min: Active Motion Color 5 min: Body Arroyo, Extremities Blue SCORE 5 MIN: 9 INFORMATION BABY A Gestational Age at Delivery: 40.5 Gestational Status: Full Term- 39- 40.6 Weeks Infant Outcome : Liveborn Infant Condition : Stable Infant Sex: Female IDENTIFICATION BABY A Verification Date/Time: 03/30/2018 09:24 ID Band Number: [id number] Mother's Name Verified: Yes RN Verifying Infant: M Jeremy Rn, S. Sadia, RN WEIGHT/LENGTH BABY A Infant Birthweight (gm): 3590 Weight (lb): 7 Infant Weight (oz): 15 Length (in): 21.00 Length (cm): 53.34 CORD INFORMATION BABY A No. Cord Vessels: 3 Nuchal Cord : N/A Cord Blood Taken: Yes-For Storage (Mom's Blood type +) ASSESSMENT BABY A Infant Complications: None Physical Findings at Delivery: Within Normal Limits Infant Respirations: Appears Normal Skin to Skin: Yes Skin to Skin: Yes Skin to Skin Time (min): 45 Infant Care By: james Perez RN Transferred To: Remains with Mother BABY B INFORMATION : N/A
== END 2018-04-01 13:43 | disposition home or self-care (01) | DRG 807 ==
LOC: LC 18:30 → LR 19:04 → 2S 03-30 12:51
PROVIDERS: ADMIT Obstetrics & Gynecology; ATTEND Obstetrics & Gynecology
PROC: 10E0XZZ Delivery of Products of Conception, External Approach (ICD-10-PCS; principal; 2018-03-30)
PROC: 4A1HXCZ Monitoring of Products of Conception, Cardiac Rate, External Approach (ICD-10-PCS; 2018-03-30)
PROC: 10907ZC Drainage of Amniotic Fluid, Therapeutic from Products of Conception, Via Natural or Artificial Opening (ICD-10-PCS; 2018-03-30)
DX: O48.0 Post-term pregnancy (principal); Z37.0 Single live birth; O34.219 Maternal care for unspecified type scar from previous cesarean delivery; O99.214 Obesity complicating childbirth; E66.9 Obesity, unspecified; Z3A.40 40 weeks gestation of pregnancy
CPT/HCPCS: 36415; 80307; 81005; 85025; 85027; 86592; 86850; 86900; 86901; J0690; J2405; J2590; J3010; J3105; J3490

== ENCOUNTER 2018-11-30 14:59 | Observation (INO) | payer BC, MEDICAID ==
[2018-11-30] MEDS ORDERED: ONDANSETRON 4 MG TAB.RAPDIS PO ONE (15:11)
[2018-11-30] MEDS ORDERED: IBUPROFEN 600 MG TABLET PO ONE (15:11)
--- NOTE | 2018-11-30 15:18 | ER Document Report ---
ED Medical Screen (RME) - General Chief Complaint: Abdominal Pain Stated Complaint: ABDOMINAL PAIN Time Seen by Provider: 11/30/18 15:10 Primary Care Provider: KATELYN CHEN CNM [Primary Care Provider] - Follow up as needed Mode of Arrival: Ambulatory Information source: Patient Notes: 28-year-old female presented to ED for complaint of abdominal pain back pain and migraines for a week menstrual cycle x2 weeks crusty eye drainage the last 2 days when she woke up and vomiting since Monday. She states she did not vomit today but she did vomit yesterday. Patient is alert oriented respirations regular and unlabored speaking in full sentences. Patient does have a very full thick neck. She states this is been swollen since her last childbirth about 8 months ago. She says she supposed to follow-up concerning her swollen neck. Patient will be treated with ibuprofen and Zofran for the headache and pain and urine and blood will be sent. I have greeted and performed a rapid initial assessment of this patient. A comprehensive ED assessment and evaluation of the patient, analysis of test results and completion of medical decision making process will be conducted by an additional ED providers. Dictation of this chart was performed using voice recognition software; therefore, there may be some unintended grammatical errors. TRAVEL OUTSIDE OF THE [place] IN LAST 30 DAYS: No - Related Data Allergies/Adverse Reactions: No Known Allergies Allergy (Verified 11/30/18 15:00) Past Medical History - Social History Chew tobacco use (# tins/day): No Frequency of alcohol use: None Drug Abuse: None Neurological Medical History: Reports: Hx Migraine. Denies: Hx Seizures Renal/ Medical History: Denies: Hx Peritoneal Dialysis GI Medical History: Reports: Hx Gastroesophageal Reflux Disease. Denies: Hx Hiatal Hernia, Hx Ulcer Musculoskeltal Medical History: Denies Hx Fibromyalgia Traumatic Medical History: Denies: Hx Fractures Past Surgical History: Reports: Hx Section. Denies: Hx Pacemaker - Immunizations Hx Diphtheria, Pertussis, Tetanus Vaccination: Yes Physical Exam - Vital signs Vitals: Temp Pulse Resp BP Pulse Ox 98.9 F 86 16 132/86 H 99 11/30/18 15:03 11/30/18 15:03 11/30/18 15:03 11/30/18 15:03 11/30/18 15:03 Course - Vital Signs Vital signs: Temp Pulse Resp BP Pulse Ox 98.9 F 86 16 132/86 H 99 11/30/18 15:03 11/30/18 15:03 11/30/18 15:03 11/30/18 15:03 11/30/18 15:03 Doctor's Discharge - Discharge Referrals: KATELYN CHEN CNM [Primary Care Provider] - Follow up as needed
[2018-11-30 15:58] LABS: ABSOLUTE EOSINOPHILS # (AUTO) 0.1 10^3/uL (0.0-0.6); ABSOLUTE LYMPHOCYTES (AUTO) 1.1 10^3/uL (0.5-4.7); ABSOLUTE MONOCYTES (AUTO) 0.7 10^3/uL (0.1-1.4); ABSOLUTE NEUT (AUTO) 3.7 10^3/uL (1.7-8.2); BASOPHILS % (AUTO) 0.8 % (0-2); EOSINOPHILS % (AUTO) 2.2 % (0-6); HEMATOCRIT 23.7 % (36.0-47.0); LYMPHOCYTES % (AUTO) 19.6 % (13-45); MEAN CORPUSCULAR HEMOGLOBIN 24.2 pg (27.0-33.4); MEAN CORPUSCULAR HGB CONC 31.9 g/dL (32.0-36.0); MEAN CORPUSCULAR VOLUME 76 fl (80-97); MONOCYTES % (AUTO) 12.2 % (3-13); PLATELET COUNT 421 10^3/uL (150-450); RED BLOOD COUNT 3.12 10^6/uL (3.72-5.28); RED CELL DISTRIBUTION WIDTH 16.9 % (11.5-14.0); SEGMENTED NEUTROPHILS % (AUTO) 65.2 % (42-78); TOTAL CELLS COUNTED % (AUTO) 100 %; WHITE BLOOD COUNT 5.6 10^3/uL (4.0-10.5)
[2018-11-30 16:02] LABS: HEMOGLOBIN 7.5 g/dL (12.0-15.5)
[2018-11-30 16:09] LABS: APPEARANCE,URINE CLOUDY; BILIRUBIN,URINE NEGATIVE (NEGATIVE); COLOR,URINE AMBER; GLUCOSE, URINE NEGATIVE (NEGATIVE); KETONES,URINE NEGATIVE (NEGATIVE); LEUKOCYTE ESTERASE,URINE LARGE (NEGATIVE); NITRITE,URINE NEGATIVE (NEGATIVE); PROTEIN,URINE 30 mg/dL (NEGATIVE); URINE SPECIFIC GRAVITY 1.016
[2018-11-30 16:15] LABS: ALANINE AMINOTRANSFERASE 21 U/L (9-52); ALBUMIN 3.8 g/dL (3.5-5.0); ALKALINE PHOSPHATASE 65 U/L (38-126); ANION GAP 8 (5-19); ASPARTATE AMINO TRANSFERASE 16 U/L (14-36); BILIRUBIN,DIRECT 0.2 mg/dL (0.0-0.4); BILIRUBIN,TOTAL 0.3 mg/dL (0.2-1.3); BLOOD UREA NITROGEN 9 mg/dL (7-20); CALCIUM 8.8 mg/dL (8.4-10.2); CARBON DIOXIDE 28 mmol/L (22-30); CHLORIDE 107 mmol/L (98-107); GLUCOSE 79 mg/dL (75-110); LIPASE 41.5 U/L (23-300); POTASSIUM 3.8 mmol/L (3.6-5.0); SODIUM 142.8 mmol/L (137-145)
[2018-11-30 16:31] LABS: FREE T3 4.1 pg/mL (2.77-5.27); FREE T4 (FREE THYROXINE) 1.18 ng/dL (0.78-2.19)
[2018-11-30 16:44] LABS: THYROID STIMULATING HORMONE 0.66 uIU/mL (0.47-4.68)
--- NOTE | 2018-11-30 17:05 | ER Document Report ---
ED General - General Chief Complaint: Abdominal Pain Stated Complaint: ABDOMINAL PAIN Time Seen by Provider: 11/30/18 15:10 Primary Care Provider: KATELYN CHEN CNM [Primary Care Provider] - Follow up as needed Mode of Arrival: Ambulatory TRAVEL OUTSIDE OF THE [place] IN LAST 30 DAYS: No - HPI Notes: 28-year-old female to the emergency department with multiple complaints. She states that one month ago she had an elective . She states initially after the she bled for 1 week and then stop bleeding. Then she began to bleed again 2 weeks ago and has been bleeding since. She states the past several days she began to have nausea and vomiting. She states that she has not vomited since last night. States that she also has been having some diarrhea. She denies any urinary frequency, lightheadedness, chest pain, shortness of breath. Does admit to a frontal headache that she has had for the past week as well. States that it is dull and feels like pressure. It seems to get worse when she stands up but when she lays down it goes away. She denies any numbness, tingling, blurry vision, extremity weakness, speech difficulty. She is a G6, P5 with 1 twin gestation and one elective . - Related Data Allergies/Adverse Reactions: No Known Allergies Allergy (Verified 11/30/18 15:00) Past Medical History - General Information source: Patient - Social History Smoking Status: Never Smoker Chew tobacco use (# tins/day): No Frequency of alcohol use: None Drug Abuse: None Family History: Reviewed & Not Pertinent Patient has suicidal ideation: No Patient has homicidal ideation: No Neurological Medical History: Reports: Hx Migraine. Denies: Hx Seizures Renal/ Medical History: Denies: Hx Peritoneal Dialysis GI Medical History: Reports: Hx Gastroesophageal Reflux Disease. Denies: Hx Hiatal Hernia, Hx Ulcer Musculoskeletal Medical History: Denies Hx Fibromyalgia Traumatic Medical History: Denies: Hx Fractures Past Surgical History: Reports: Hx Section. Denies: Hx Pacemaker - Immunizations Hx Diphtheria, Pertussis, Tetanus Vaccination: Yes Physical Exam - Vital signs Vitals: Temp Pulse Resp BP Pulse Ox 98.9 F 86 16 132/86 H 99 11/30/18 15:03 11/30/18 15:03 11/30/18 15:03 11/30/18 15:03 11/30/18 15:03 Interpretation: Normal, Hypertensive - General General appearance: Appears well, Alert - HEENT Head: Normocephalic, Atraumatic Eyes: Normal Pupils: PERRL - Respiratory Respiratory status: No respiratory distress Chest status: Nontender Breath sounds: Normal Chest palpation: Normal - Cardiovascular Rhythm: Regular Heart sounds: Normal auscultation Murmur: No - Abdominal Inspection: Normal Distension: No distension Bowel sounds: Normal Tenderness: Tender - Mild tenderness to palpation over the pelvic abdomen. No: McBurney's point, Cabrera's sign, Guarding, Rebound Organomegaly: No organomegaly - Back Back: Normal, Nontender. No: CVA tenderness - Extremities General upper extremity: Normal inspection, Nontender, Normal color, Normal ROM, Normal temperature General lower extremity: Normal inspection, Nontender, Normal color, Normal ROM, Normal temperature, Normal weight bearing. No: Barb's sign - Neurological Neuro grossly intact: Yes Cognition: Normal Orientation: AAOx4 Braden Coma Scale Eye Opening: Spontaneous Braden Coma Scale Verbal: Oriented Braden Coma Scale Motor: Obeys Commands [place] Coma Scale Total: 15 Speech: Normal Motor strength normal: LUE, RUE, LLE, RLE Sensory: Normal - Psychological Associated symptoms: Normal affect, Normal mood - Skin Skin Temperature: Warm Skin Moisture: Dry Skin Color: Normal Course - Vital Signs Vital signs: Temp Pulse Resp BP Pulse Ox 98.9 F 74 16 136/68 H 99 11/30/18 15:03 11/30/18 19:41 11/30/18 19:41 11/30/18 19:41 11/30/18 19:41 - Laboratory Result Diagrams: 11/30/18 15:40 11/30/18 15:40 Laboratory results interpreted by me: 11/30/18 11/30/18 11/30/18 15:40 15:40 15:40 RBC 3.12 L Hgb 7.5 L Hct 23.7 L MCV 76 L MCH 24.2 L MCHC 31.9 L RDW 16.9 H Serum HCG, Qual POSITIVE H Beta HCG, Quant Urine Protein 30 H Urine Blood LARGE H Urine Urobilinogen 4.0 H Ur Leukocyte Esterase LARGE H Crossmatch 11/30/18 11/30/18 15:40 16:16 RBC Hgb Hct MCV MCH MCHC RDW Serum HCG, Qual Beta HCG, Quant 24.31 H Urine Protein Urine Blood Urine Urobilinogen Ur Leukocyte Esterase Crossmatch See Detail - Diagnostic Test Radiology reviewed: Image reviewed, Reports reviewed - Noted ultrasound reading with concern for retained products of conception - Transfer of Care Notes: 11/30/[address] Samson. We discussed ultrasound reading which is most concerning for retained products of conception. She agrees that PR[employer]CE [employer] will need to be called in the D&C done. With Dr. Anusha mcknight, OBGYN ad operations intern. She agrees with the plan and will plan to take the patient to the OR as patient has not been on day. Updated patient about results and plan and she agrees. We will give patient 1 g of Rocephin as well. Patient is excepted to Dr. mcknight's service. Impression: Abd pain, Retained products of Conception after elective , NV, UTI. Patient admitted to Dr. Mcknight's service for D and C. Discharge - Discharge Clinical Impression: Retained products of conception, Vaginal bleeding Anemia Qualifiers: Anemia type: iron deficiency Disposition: ADMITTED OBSERVATION Admitting Provider: Dr. Anusha Mcknight Unit Admitted: OR Referrals: KATELYN CHEN CNM [Primary Care Provider] - Follow up as needed
--- NOTE | 2018-11-30 18:21 | RADIOLOGY REPORT (SQ) ---
EXAM DESCRIPTION: U/S OB TRANSVAG W/DOPPLER COMPLETED DATE/TIME: 11/30/2018 6:04 pm REASON FOR STUDY: vag bleed, recent , eval retained products COMPARISON: None. TECHNIQUE: Transvaginal static and realtime grayscale images acquired of the pelvis. Additional isabella cted spectral and color Doppler images recorded. All images stored on PACs. BHC LIMITATIONS: None. FINDINGS: UTERUS: 10 x 10 x 5 mm area of fluid in the uterine body, questionable irregular gestation al sac versus free fluid. No yolk sac or pole. RIGHT ADNEXA: Normal ovary with normal vascular flow. No adnexal free fluid. No adnexal masses. LEFT ADNEXA: Normal ovary with normal vascular flow. No adnexal free fluid. No adnexal masses. FREE FLUID: None. OTHER: No other significant finding. IMPRESSION: 10 x 10 x 5 mm area of fluid in the uterine body, questionable irregular gestational sac versus free fluid. No yolk sac or pole. ECTOPIC CANNOT BE EXCLUDED. FOLLOW-UP ULTRASOUND AND SERIAL BHCG LEVELS STRONGLY RECOMMENDED TO ACCURATELY ASSESS STATU S. TECHNICAL DOCUMENTATION: JOB ID: [id number] [place]-72 2010 [employer]- All Rights Reserved Reading location - IP/workstation name: [employer]
[2018-11-30] MEDS ORDERED: CEFTRIAXONE 1 GM/D5W RTU 1 GM/50 ML RTUPB IV ONE (18:38)
[2018-11-30] MEDS ORDERED: FENTANYL CITRATE INJ/PF 100 MCG/2 ML AMPUL ONE (19:18)
[2018-11-30] MEDS ORDERED: LIDOCAINE 2% INJ-PF (20 MG/ML) 10 ML AMPUL ONE (19:18)
[2018-11-30] MEDS ORDERED: MIDAZOLAM 2 MG/2 ML INJ ONE ×2 (19:18→19:39)
[2018-11-30] MEDS ORDERED: PROPOFOL INJ 200 MG/20 ML VIAL IV ONE (19:19)
[2018-11-30] MEDS ORDERED: ONDANSETRON HCL INJ/PF 4 MG/2 ML SDV ONE (19:19)
[2018-11-30] MEDS ORDERED: DEXAMETHASONE SOD PHOSPHATE INJ 4 MG/1 ML VIAL ONE (19:19)
--- NOTE | 2018-11-30 19:28 | PDOC H&P ---
History of Present Illness Admission Date/PCP: KATELYN CHEN Patient complains of: Vaginal bleeding for several weeks History of Present Illness: VLADIMIR CHINO is a 28 year old -0-2-5 [facility] complaining of bleeding for several weeks. Patient stated that her last menstrual cycle was in October. She underwent on October 13. Since this was an early , she had the option of undergoing a suction D&C versus medication. She stated that she was not given an option secondary to her anemia. She stated after the procedure, the bleeding stopped in 1 week later she bled like a menstrual cycle. This past Monday, she thought she started her menstrual cycle again and has not stopped bleeding since. She has a history of very heavy menstrual cycles. Patient denies fever/chills or nausea/vomiting. She does admit to extreme fatigue Past Medical History LMP: October 03, 2018 Gynecological Infection: No Neurological Medical History: Reports: Migraine Denies: Seizures GI Medical History: Reports: Gastroesophageal Reflux Disease Denies: Hiatal Hernia Musculoskeltal Medical History: Denies: Fibromyalgia Past Surgical History Past Surgical History: Reports: Section, Other - Suction D&C Denies: Pacemaker Social History Lives with: Family Smoking Status: Never Smoker Frequency of Alcohol Use: None Hx Recreational Drug Use: No Drugs: None Family History Family History: Reviewed & Not Pertinent Parental Family History Reviewed: No - N/A Children Family History Reviewed: NA Sibling(s) Family History Reviewed.: NA Medication/Allergy Allergies/Adverse Reactions: No Known Allergies Allergy (Verified 11/30/18 15:00) Physical Exam - Physical Exam Vital Signs: Temp Pulse Resp BP Pulse Ox 98.9 F 86 16 132/86 H 99 11/30/18 15:03 11/30/18 15:03 11/30/18 15:03 11/30/18 15:03 11/30/18 15:03 Intake & Output 11/29/18 11/30/18 12/01/18 06:59 06:59 06:59 Weight 97.3 kg General appearance: PRESENT: no acute distress Respiratory exam: PRESENT: clear to auscultation mendy Cardiovascular exam: PRESENT: RRR GI/Abdominal exam: PRESENT: normal bowel sounds, soft Musculoskeletal exam: ABSENT: ambulatory, deformity, dislocation, full ROM, normal inspection, tenderness, other - Gynecological Exam Vagina: not examined - Bleeding heavily Result Laboratory Results: 11/30/18 15:40 11/30/18 15:40 11/30/18 11/30/18 11/30/18 15:40 15:40 15:40 WBC 5.6 RBC 3.12 L Hgb 7.5 L Hct 23.7 L MCV 76 L MCH 24.2 L MCHC 31.9 L RDW 16.9 H Plt Count 421 Seg Neutrophils % 65.2 Lymphocytes % 19.6 Monocytes % 12.2 Eosinophils % 2.2 Basophils % 0.8 Absolute Neutrophils 3.7 Absolute Lymphocytes 1.1 Absolute Monocytes 0.7 Absolute Eosinophils 0.1 Absolute Basophils 0.0 Sodium 142.8 Potassium 3.8 Chloride 107 Carbon Dioxide 28 Anion Gap 8 BUN 9 Creatinine 0.74 Est GFR ( Amer) > 60 Est GFR (Non-Af Amer) > 60 Glucose 79 Calcium 8.8 Total Bilirubin 0.3 AST 16 ALT 21 Alkaline Phosphatase 65 Total Protein 7.0 Albumin 3.8 Lipase 41.5 TSH Free T4 Free T3 pg/mL Serum HCG, Qual POSITIVE H Urine Color Urine Appearance Urine pH Ur Specific [place] Urine Protein Urine Glucose (UA) Urine Ketones Urine Blood Urine Nitrite Ur Leukocyte Esterase Urine WBC (Auto) Urine RBC (Auto) Blood Type Antibody Screen 11/30/18 11/30/18 11/30/18 15:40 15:40 16:16 WBC RBC Hgb Hct MCV MCH MCHC RDW Plt Count Seg Neutrophils % Lymphocytes % Monocytes % Eosinophils % Basophils % Absolute Neutrophils Absolute Lymphocytes Absolute Monocytes Absolute Eosinophils Absolute Basophils Sodium Potassium Chloride Carbon Dioxide Anion Gap BUN Creatinine Est GFR ( Amer) Est GFR (Non-Af Amer) Glucose Calcium Total Bilirubin AST ALT Alkaline Phosphatase Total Protein Albumin Lipase TSH 0.66 Free T4 1.18 Free T3 pg/mL 4.10 Serum HCG, Qual Urine Color DIONICIO Urine Appearance CLOUDY Urine pH 6.0 Ur Specific [place] 1.016 Urine Protein 30 H Urine Glucose (UA) NEGATIVE Urine Ketones NEGATIVE Urine Blood LARGE H Urine Nitrite NEGATIVE Ur Leukocyte Esterase LARGE H Urine WBC (Auto) 120 Urine RBC (Auto) 8 Blood Type A POSITIVE Antibody Screen NEGATIVE Impressions: Transvaginal US 11/30/18 17:23 IMPRESSION: 10 x 10 x 5 mm area of fluid in the uterine body, questionable irregular gestational sac versus free fluid. No yolk sac or pole. ECTOPIC CANNOT BE EXCLUDED. FOLLOW-UP ULTRASOUND AND SERIAL BHCG LEVELS STRONGLY RECOMMENDED TO ACCURATELY ASSESS STATUS. Assessment & Plan - Diagnosis (1) Anemia Qualifiers: Anemia type: iron deficiency Is this a current diagnosis for this admission?: Yes (2) Retained products of conception following Is this a current diagnosis for this admission?: Yes - Time Time Spent: 50 to 70 Minutes - Inpatient Certification Based on my medical assessment, after consideration of the patient's comorbidities, presenting symptoms, or acuity I expect that the services needed warrant INPATIENT care.: Yes I certify that my determination is in accordance with my understanding of Medicare's requirements for reasonable and necessary INPATIENT services [42 CFR 412.3e].: Yes Medical Necessity: Need for Surgery Post Hospital Care: D/C or Transfer Summary - Discharge tomorrow, patient drove herself to the hospital - Plan Summary Plan Summary: 1. Consent for suction D&C 2. Transfuse (1) unit of packed red blood cells 3. IV iron 4. Discharge with Rx for doxycycline x7 days 5. Follow up in the office in 2 weeks for postop exam
[2018-11-30] MEDS ORDERED: DOXYCYCLINE HYCLATE 100 MG in DEXTROSE 5%-WATER 250 ML IV PRN (19:46)
[2018-11-30] MEDS ORDERED: MISOPROSTOL 0.2 MG TABLET ONE (20:00)
[2018-11-30] MEDS ORDERED: IRON SUCROSE COMPLEX INJ/PF 100 MG/5 ML SDV IV ONE (20:00)
[2018-11-30] MEDS ORDERED: ONDANSETRON HCL INJ/PF 4 MG/2 ML SDV IV PRN (20:22)
[2018-11-30] MEDS ORDERED: DIPHENHYDRAMINE HCL 50 MG/ML VIAL IV PRN (20:22)
[2018-11-30] MEDS ORDERED: FENTANYL CITRATE INJ/PF 100 MCG/2 ML AMPUL IV PRN ×3 (20:22)
[2018-11-30] MEDS ORDERED: PROMETHAZINE HCL INJ 25 MG/1 ML VIAL IV PRN ×2 (20:22)
--- NOTE | 2018-11-30 20:38 | Operative Report ---
Operative Report DATE OF SURGERY: 11/30/18 PREOPERATIVE DIAGNOSIS: 1. Retained products of conception after . 2. Rh positive. 3. Severe anemia POSTOPERATIVE DIAGNOSIS: Same OPERATION: Suction dilatation and curettage SURGEON: MIS VALDIVIA ANESTHESIA: GA TISSUE REMOVED OR ALTERED: Products of conception COMPLICATIONS: None ESTIMATED BLOOD LOSS: 50 mL INTRAOPERATIVE FINDINGS: Uterus sounded 8 cm; 8 mm curved Albanian curette used; minimal amounts of products of conception PROCEDURE: The patient was taken to the Operating Room where general anesthesia was obtained without difficulty. She was prepped and draped in the normal sterile fashion in the dorsal lithotomy position. Exam under anesthesia was performed and noted above. A speculum was placed in the vagina. The anterior cervix was grasped with a single-tooth tenaculum and the uterus sounded to 8 cm. The ce rvix was noted to be closed at the beginning of the procedure. Sequential dilators were then used to dilate the cervix to accommodate the the 8 mm suction curette curved. The 8 mm curved suction curette was gently advanced in the usual fashion and good return of tissue. The suction device was then activated and the curette rotated to clear the uterus of the products of conception. A sharp curettage was then performed. The suction device was then gently reintroduced and activated and the curette rotated to clear the uterus of conception which was loosened with recent sharp curettage. The sharp curettage was then performed again until a gritty texture was noted and the cavity was felt to be empty of further tissue. At this time there was minimal bleeding noted from the cervix. All instruments were removed from the patient's cervix and vagina. Monsel's solution was applied to the tenaculum site for hemostasis. Sponge, lap and instrument counts are correct 2. Doxycycline 100 mg IV was given perioperatively, as well as Cytotec 800 mcg per rectum, postoperatively. The patient tolerated the procedure well and was taken to the recovery area awake and in stable condition. The patient was discharged home.
--- NOTE | 2018-11-30 23:54 | PDOC DISCHARGE SUMMARY ---
General - Admit/Disc Date/PCP Admission Date/Primary Care Provider: 11/30/18 20:55 KATELYN CHEN Discharge Date: 11/30/18 - Discharge Diagnosis (1) Anemia Is this a current diagnosis for this admission?: Yes (2) Retained products of conception following Is this a current diagnosis for this admission?: Yes History of Present Illness History of Present Illness: VLADIMIR CHINO is a 28 year old -0-2-5 presents to [facility] ED complaining of bleeding for several weeks. Patient stated that her last menstrual cycle was in October. She underwent on October 13. Since this was an early , she had the option of undergoing a suction D&C versus medication. She stated that she was not given an option secondary to her anemia. She stated after the procedure, the bleeding stopped in 1 week later she bled like a menstrual cycle. This past Monday, she thought she started her menstrual cycle again and has not stopped bleeding since. She has a history of very heavy menstrual cycles. Patient denies fever/chills or nausea/vomiting. She does admit to extreme fatigue Hospital Course Hospital Course: Hospital course was essentially uneventful. Patient received 1 unit of packed red blood cells. Initially, the patient needed to stay overnight secondary to the fact that she had driven herself to the hospital. Her mother then arrived and was able to drive the patient home. The unit of blood was not ready, to give perioperatively, therefore was given postoperatively on the floor. She tolerated the transfusion well. Physical Exam - Physical Exam Vital Signs: Temp Pulse Resp BP Pulse Ox 97.9 F 67 16 118/73 100 11/30/18 23:08 11/30/18 23:08 11/30/18 23:08 11/30/18 23:08 11/30/18 23:08 Intake & Output 11/29/18 11/30/18 12/01/18 06:59 06:59 06:59 Intake Total 600 Output Total 70 Balance 530 Weight 97.3 kg General appearance: PRESENT: no acute distress Respiratory exam: PRESENT: clear to auscultation mendy GI/Abdominal exam: PRESENT: normal bowel sounds, soft Extremities exam: ABSENT: calf tenderness, clubbing, full ROM, joint swelling, pedal edema, tenderness, +1 edema, +2 edema, other - Gynecological Exam Vagina: not examined - Bleeding heavily Result Laboratory Results: 11/30/18 15:40 11/30/18 15:40 11/30/18 11/30/18 11/30/18 15:40 15:40 15:40 WBC 5.6 RBC 3.12 L Hgb 7.5 L Hct 23.7 L MCV 76 L MCH 24.2 L MCHC 31.9 L RDW 16.9 H Plt Count 421 Seg Neutrophils % 65.2 Lymphocytes % 19.6 Monocytes % 12.2 Eosinophils % 2.2 Basophils % 0.8 Absolute Neutrophils 3.7 Absolute Lymphocytes 1.1 Absolute Monocytes 0.7 Absolute Eosinophils 0.1 Absolute Basophils 0.0 Sodium 142.8 Potassium 3.8 Chloride 107 Carbon Dioxide 28 Anion Gap 8 BUN 9 Creatinine 0.74 Est GFR ( Amer) > 60 Est GFR (Non-Af Amer) > 60 Glucose 79 Calcium 8.8 Total Bilirubin 0.3 AST 16 ALT 21 Alkaline Phosphatase 65 Total Protein 7.0 Albumin 3.8 Lipase 41.5 TSH Free T4 Free T3 pg/mL Serum HCG, Qual POSITIVE H Urine Color Urine Appearance Urine pH Ur Specific Demorest Urine Protein Urine Glucose (UA) Urine Ketones Urine Blood Urine Nitrite Ur Leukocyte Esterase Urine WBC (Auto) Urine RBC (Auto) Blood Type Antibody Screen 11/30/18 11/30/18 11/30/18 15:40 15:40 16:16 WBC RBC Hgb Hct MCV MCH MCHC RDW Plt Count Seg Neutrophils % Lymphocytes % Monocytes % Eosinophils % Basophils % Absolute Neutrophils Absolute Lymphocytes Absolute Monocytes Absolute Eosinophils Absolute Basophils Sodium Potassium Chloride Carbon Dioxide Anion Gap BUN Creatinine Est GFR ( Amer) Est GFR (Non-Af Amer) Glucose Calcium Total Bilirubin AST ALT Alkaline Phosphatase Total Protein Albumin Lipase TSH 0.66 Free T4 1.18 Free T3 pg/mL 4.10 Serum HCG, Qual Urine Color DIONICIO Urine Appearance CLOUDY Urine pH 6.0 Ur Specific Demorest 1.016 Urine Protein 30 H Urine Glucose (UA) NEGATIVE Urine Ketones NEGATIVE Urine Blood LARGE H Urine Nitrite NEGATIVE Ur Leukocyte Esterase LARGE H Urine WBC (Auto) 120 Urine RBC (Auto) 8 Blood Type A POSITIVE Antibody Screen NEGATIVE Impressions: Transvaginal US 11/30/18 17:23 IMPRESSION: 10 x 10 x 5 mm area of fluid in the uterine body, questionable irregular gestational sac versus free fluid. No yolk sac or pole. ECTOPIC CANNOT BE EXCLUDED. FOLLOW-UP ULTRASOUND AND SERIAL BHCG LEVELS STRONGLY RECOMMENDED TO ACCURATELY ASSESS STATUS. Plan Discharge Plan: Discharge home Time Spent: Greater than 30 Minutes - Patient underwent surgery and received a blood transfusion of 1 unit Acute Heart Failure - Is this a Heart Failure Patient?: No
[2018-12-01 00:35] VITALS: BP 120/67
== END 2018-12-01 01:02 | disposition home or self-care (01) ==
LOC: ER 14:59 → EH 20:51 → ER 20:54 → EH 20:55 → 2N 21:27
PROVIDERS: ADMIT Obstetrics & Gynecology; ATTEND Obstetrics & Gynecology
PROC: 10D17ZZ Extraction of Products of Conception, Retained, Via Natural or Artificial Opening (ICD-10-PCS; principal; 2018-11-30 20:00)
DX: O03.4 Incomplete spontaneous abortion without complication (principal); D50.9 Iron deficiency anemia, unspecified; K21.9 Gastro-esophageal reflux disease without esophagitis
CPT/HCPCS: 59812; 86900; 86901; 36415; 84439; 36430; 86850; 84702; 83690; 84443; 84703; 85025; 80053; 81001; 84481; 86920; 88305 ×2; 76817; 93976; 00940; P9016; J2250; J1100; S0119; J3010; J2405; J2704; J3490; 940

== ENCOUNTER 2019-12-21 12:02 | Emergency (ER) | payer BC, MEDICAID ==
--- NOTE | 2019-12-21 13:00 | ER Document Report ---
ED Medical Screen (RME) - General Chief Complaint: Vaginal Bleeding Stated Complaint: VAGINAL BLEEDING 2+WKS Time Seen by Provider: 12/21/19 12:56 Primary Care Provider: KATELYN CHEN CNM [Primary Care Provider] - Follow up as needed Mode of Arrival: Ambulatory Information source: Patient Notes: 29-year-old female presented ED for vaginal bleeding x2 weeks. She states the last 3 days there is been a lack of blood clots. She does have an IUD. She states she had some like this happen before and they told her she was even though she was not . We will get blood urine and ultrasound and have her evaluated. Patient is alert oriented respirations regular nonlabored speaking in full sentences. I have greeted and performed a rapid initial assessment of this patient. A comprehensive ED assessment and evaluation of the patient, analysis of test results and completion of medical decision making process will be conducted by an additional ED providers. TRAVEL OUTSIDE OF THE [place] IN LAST 30 DAYS: No - Related Data Allergies/Adverse Reactions: No Known Allergies Allergy (Verified 11/30/18 15:00) Past Medical History Neurological Medical History: Reports: Hx Migraine. Denies: Hx Seizures Renal/ Medical History: Denies: Hx Peritoneal Dialysis GI Medical History: Reports: Hx Gastroesophageal Reflux Disease. Denies: Hx Hiatal Hernia, Hx Ulcer Musculoskeltal Medical History: Denies Hx Fibromyalgia Traumatic Medical History: Denies: Hx Fractures Past Surgical History: Reports: Hx Section, Other - Suction D&C. Denies: Hx Pacemaker - Immunizations Hx Diphtheria, Pertussis, Tetanus Vaccination: Yes Doctor's Discharge - Discharge Referrals: KATELYN CHEN CNM [Primary Care Provider] - Follow up as needed
[2019-12-21 14:10] LABS: ABSOLUTE EOSINOPHILS # (AUTO) 0.2 10^3/uL (0.0-0.6); ABSOLUTE LYMPHOCYTES (AUTO) 1.1 10^3/uL (0.5-4.7); ABSOLUTE MONOCYTES (AUTO) 0.5 10^3/uL (0.1-1.4); ABSOLUTE NEUT (AUTO) 4.1 10^3/uL (1.7-8.2); BASOPHILS % (AUTO) 0.6 % (0-2); EOSINOPHILS % (AUTO) 2.6 % (0-6); HEMATOCRIT 34.8 % (36.0-47.0); HEMOGLOBIN 11.8 g/dL (12.0-15.5); LYMPHOCYTES % (AUTO) 18.9 % (13-45); MEAN CORPUSCULAR HEMOGLOBIN 29.9 pg (27.0-33.4); MEAN CORPUSCULAR HGB CONC 33.9 g/dL (32.0-36.0); MEAN CORPUSCULAR VOLUME 88 fl (80-97); MONOCYTES % (AUTO) 8.9 % (3-13); PLATELET COUNT 254 10^3/uL (150-450); RED BLOOD COUNT 3.96 10^6/uL (3.72-5.28); RED CELL DISTRIBUTION WIDTH 14.8 % (11.5-14.0); TOTAL CELLS COUNTED % (AUTO) 100 %
[2019-12-21 14:14] LABS: APPEARANCE,URINE CLOUDY; BILIRUBIN,URINE NEGATIVE (NEGATIVE); COLOR,URINE YELLOW; GLUCOSE, URINE NEGATIVE (NEGATIVE); KETONES,URINE NEGATIVE (NEGATIVE); LEUKOCYTE ESTERASE,URINE TRACE (NEGATIVE); NITRITE,URINE NEGATIVE (NEGATIVE); PROTEIN,URINE 30 mg/dL (NEGATIVE); URINE SPECIFIC GRAVITY 1.017; UROBILINOGEN,URINE NEGATIVE mg/dL (<2.0)
--- NOTE | 2019-12-21 14:17 | RADIOLOGY REPORT (SQ) ---
EXAM DESCRIPTION: U/S NON-OB PELVIS TV W/O DOP IMAGES COMPLETED DATE/TIME: 12/21/2019 1:55 pm REASON FOR STUDY: Vaginal bleeding IUD COMPARISON: OB ultrasound 06/07/2017. TECHNIQUE: Dynamic and static grayscale images acquired of the pelvis via transvaginal approach and recorded on PACS. Additional selected color Doppler images recorded. LIMITATIONS: None. FINDINGS: UTERUS: The uterus measures 10.0 x 4.2 x 5.4 cm. No focal myometrial mass was seen. ENDOMETRIAL STRIPE: The endometrium measures 7.9 mm in double wall thickness. No intrauterine device is visualized. Small amount of fluid is noted at the endometrial canal. CERVIX: The cervix measures 3.6 cm in length. RIGHT OVARY AND DOPPLER: The right ovary measures 3.8 x 1.9 x 2.1 cm. Flow by Doppler was shown to t he right ovary. LEFT OVARY AND DOPPLER: The left ovary measures 3.6 x 1.8 x 3.6 cm. Flow by Doppler was shown to the left ovary. FREE FLUID: A small fluid collection was noted adjacent to the cervix measuring 3.4 x 1.6 x 3.7 cm. IMPRESSION: No intrauterine device was visualized. Small amount of fluid at the endometrial canal. Small fluid collection adjacent to the cervix. TECHNICAL DOCUMENTATION: JOB ID: [id number] [employer] All Rights Reserved Rev Reading location - IP/workstation name: [email or web address]
[2019-12-21 14:26] LABS: ALBUMIN 3.9 g/dL (3.5-5.0); ALKALINE PHOSPHATASE 55 U/L (38-126); ANION GAP 5 (5-19); ASPARTATE AMINO TRANSFERASE 20 U/L (14-36); BILIRUBIN,TOTAL 0.4 mg/dL (0.2-1.3); BLOOD UREA NITROGEN 12 mg/dL (7-20); CARBON DIOXIDE 30 mmol/L (22-30); CHLORIDE 107 mmol/L (98-107); GLUCOSE 76 mg/dL (75-110); POTASSIUM 3.6 mmol/L (3.6-5.0); TOTAL PROTEIN 7.4 g/dL (6.3-8.2)
--- NOTE | 2019-12-21 17:17 | ER Document Report ---
ED GI/ - General Chief Complaint: Vaginal Bleeding Stated Complaint: VAGINAL BLEEDING 2+WKS Time Seen by Provider: 12/21/19 12:56 Primary Care Provider: KATELYN CHEN CNM [CERTIFIED NURSE BILLET ASSEMBLER] - Follow up in 3-5 days Mode of Arrival: Ambulatory Notes: Patient is a 29-year-old female who presents the emergency department with a chief complaint of vaginal bleeding. Patient states that she has been bleeding for the past 2 weeks. Patient had an IUD placed almost a year ago. Patient st ates that she has been bleeding for the past 2 weeks. Patient states that she normally has menstrual cycles with her IUD. Patient is sexually active. She does not believe that she is . Denies any past medical history. She does not take any medications. TRAVEL OUTSIDE OF THE [place] IN LAST 30 DAYS: No - Related Data Allergies/Adverse Reactions: No Known Allergies Allergy (Verified 11/30/18 15:00) Past Medical History - General Information source: Patient - Social History Smoking Status: Unknown if Ever Smoked Family History: Reviewed & Not Pertinent Neurological Medical History: Reports: Hx Migraine. Denies: Hx Seizures Renal/ Medical History: Denies: Hx Peritoneal Dialysis GI Medical History: Reports: Hx Gastroesophageal Reflux Disease. Denies: Hx Hiatal Hernia, Hx Ulcer Musculoskeletal Medical History: Denies Hx Fibromyalgia Traumatic Medical History: Denies: Hx Fractures Past Surgical History: Reports: Hx Section, Other - Suction D&C. Denies: Hx Pacemaker - Immunizations Hx Diphtheria, Pertussis, Tetanus Vaccination: Yes Review of Systems - Review of Systems Notes: REVIEW OF SYSTEMS: CONSTITUTIONAL : Denies recent illness. Denies recent unintentional weight loss. Denies fever, chills, or sweats. EENT: Denies eye, ear, throat, or mouth pain, discharge, or symptoms. Denies nasal or sinus congestion. CARDIOVASCULAR: Denies chest pain. RESPIRATORY: Denies shortness of breath, cough, congestion, difficulty breathing, or wheezing. GASTROINTESTINAL: Denies nausea, vomiting, and diarrhea. Denies abdominal pain. Denies constipation. Last BM: GENITOURINARY: Denies difficulty urinating, burning, blood in urine, urgency or frequency. FEMALE GENITOURINARY: See HPI. MUSCULOSKELETAL: Denies neck and back pain. Denies joint pain or swelling. SKIN: Denies rash, itchiness, or lesions HEMATOLOGIC : Denies easy bruising or bleeding. LYMPHATIC: Denies swollen, painful, enlarged glands. NEUROLOGICAL: Denies no numbness or tingling denies weakness. Denies headache. Denies altered mental status. Denies alteration in speech. PSYCHIATRIC: Denies stress, anxiety, alteration in sleep patterns, or depression. All other systems reviewed and negative. Physical Exam - Vital signs Vitals: Temp Pulse Resp BP Pulse Ox 98.7 F 70 16 126/89 H 100 12/21/19 12:07 12/21/19 12:07 12/21/19 12:07 12/21/19 12:07 12/21/19 12:07 - Notes Notes: PHYSICAL EXAMINATION: GENERAL: Well-appearing, well-nourished and in no acute distress. HEAD: Atraumatic, normocephalic. EYES: Pupils equal round and reactive to light, extraocular movements intact, sclera anicteric, conjunctiva are normal. ENT: nares patent, oropharynx clear without exudates. Moist mucous membranes. NECK: Normal range of motion, supple without lymphadenopathy LUNGS: Breath sounds clear to auscultation bilaterally and equal. No wheezes rales or rhonchi. HEART: Regular rate and rhythm without murmurs ABDOMEN: Soft, nontender, normoactive bowel sounds. No guarding, no rebound. No masses appreciated. EXTREMITIES: Normal range of motion, no pitting or edema. No cyanosis. NEUROLOGICAL: No focal neurological deficits. Moves all extremities spontaneously and on command. PSYCH: Normal mood, normal affect. SKIN: Warm, Dry, normal turgor, no rashes or lesions noted. SHOE PULLER: Small amount of blood noted in vaginal canal. No cervical motion tenderness. No adnexal tenderness noted. Course - Re-evaluation Re-evalutation: 12/21/19 17:16 Hematology shows a mild anemia, but this is better than her previous visit last year where her hemoglobin was 7. It is currently 11.8. Hematocrit is 34.8. No leukocytosis noted. Chemistries are unremarkable. LFTs are normal. Patient is not . Patient has trace leukocytes and a large amount of blood in her urine. Pelvic exam done with CORI Porter at bedside. There was bleeding noted, but no large clots noted. Ultrasound shows that the patient's IUD is not in. I talked to the patient about this and offered her control pills. She states that she does not want to have control pills. I told her that if she does not want to get that she needs to not have sex. She is in agreement with this plan. Patient is stating that she wants to leave because her daughter is hungry. We will call the patient with wet mount results and gonorrhea and Chlamydia results. 12/22/19 12:02 I reviewed the patient's chart and the patient was positive for chlamydia. I called to have the patient call me back at the hospital. Will await call back and update patient. 12/22/19 20:00 I did not get a call back from the patient. Microbiology nurse will contact the patient with results when they are here tomorrow. - Vital Signs Vital signs: Temp Pulse Resp BP Pulse Ox 98.7 F 70 16 126/89 H 100 12/21/19 12:07 12/21/19 12:07 12/21/19 12:07 12/21/19 12:07 12/21/19 12:07 - Laboratory Result Diagrams: 12/21/19 13:48 12/21/19 13:48 Laboratory results interpreted by me: 12/21/19 12/21/19 12/21/19 13:48 13:48 15:15 Hgb 11.8 L Hct 34.8 L RDW 14.8 H Urine Protein 30 H Urine Blood LARGE H Ur Leukocyte Esterase TRACE H Chlamydia DNA (PCR) DETECTED H Discharge - Discharge Clinical Impression: Vaginal bleeding Condition: Stable Disposition: HOME, SELF-CARE Additional Instructions: You were seen today in the emergency department for vaginal bleeding. Your IUD is not in your uterus. It most likely fell out. If you do not want to get , do not have sex. Follow-up with SPORTS ANALYST in regards to this visit. Gonorrhea and Chlamydia results take about 3 hours to result. You will be called with your results. Forms: Return to Work Referrals: KATELYN CHEN CNM [CERTIFIED NURSE BILLET ASSEMBLER] - Follow up in 3-5 days
[2019-12-21 17:33] LABS: EPITHELIALS (WET MOUNT) 3+ EPITHELIALS SEEN; RBCS (WET MOUNT) 4+ RBCS SEEN; T.VAGINALIS (WET MOUNT) NO TRICHOMONAS SEEN; WBCS (WET MOUNT) RARE WBCS SEEN; YEAST (WET MOUNT) NO YEAST SEEN
[2019-12-22 01:35] LABS: CHLAM PCR DETECTED (NOT DETECT)
[2019-12-22 12:03] VITALS: BP 126/89
== END 2019-12-21 17:29 | disposition home or self-care (01) ==
LOC: ER 12:02
DX: N93.9 Abnormal uterine and vaginal bleeding, unspecified (principal); D64.9 Anemia, unspecified
CPT/HCPCS: 36415; 76830; 80053; 81001; 84702; 85025; 87086; 87088; 87186; 87210; 87491; 87591; 99284